=== PATIENT | female | born 1980 | race Caucasian/White ===

== ENCOUNTER 2017-10-26 15:25 | Emergency (ER) | payer OTHER ==
[~2017-10-26] VITALS: Ht 157.5 cm; Wt 93.9 kg
[2017-10-26] MEDS ORDERED: KETOROLAC 60 MG/2 ML IM ONE (16:00)
[2017-10-26] MEDS ORDERED: DIAZEPAM 5 MG TABLET PO ONE (16:00)
[2017-10-26] MEDS ORDERED: PROMETHAZINE 25 MG/ML, 1ML IM ONE (16:00)
[2017-10-26] MEDS ORDERED: PROMETHAZINE 25 MG/ML, 1ML ONE (16:05)
[2017-10-26] MEDS ORDERED: KETOROLAC 30 MG/1 ML ONE (16:05)
[2017-10-26] MEDS ORDERED: DIAZEPAM 5 MG TABLET ONE (16:06)
[2017-10-26 17:34] VITALS: BP 131/71
== END 2017-10-26 17:41 | disposition home or self-care (01) ==
LOC: ED 17:35
DX: R51 Headache (principal); G43.909 Migraine, unspecified, not intractable, without status migrainosus
CPT/HCPCS: 96372; 99284; J1885; J2550

== ENCOUNTER 2018-01-02 15:33 | Observation (INO) | payer OTHER ==
[~2018-01-02] VITALS: Ht 154.9 cm; Wt 93.0 kg
[2018-01-02 16:13] LABS: BASOPHILS # (AUTO) 0.01 x10^3/uL (0-0.1); BASOPHILS % (AUTO) 0 % (0-1); EOSINOPHILS # (AUTO) 0.04 x10^3/uL (0-0.4); EOSINOPHILS % (AUTO) 0 % (1-7); LYMPHOCYTES # (AUTO) 1.96 x10^3/uL (1-3.4); LYMPHOCYTES % (AUTO) 21 % (22-44); MD NO; MEAN CORPUSCULAR HEMOGLOBIN 28.6 pg (27.0-34.8); MEAN CORPUSCULAR HGB CONC 33.9 g/dL (32.4-35.8); MEAN CORPUSCULAR VOLUME 84.3 fL (80-100); MEAN PLATELET VOLUME 7.1 fL (7.4-10.4); MONOCYTES # (AUTO) 0.32 x10^3/uL (0.2-0.8); MONOCYTES % (AUTO) 3 % (2-9); NEUTROPHILS # (AUTO) 7.25 x10^3/uL (1.8-6.8); NEUTROPHILS % (AUTO) 76 % (42-75); PLATELET COUNT 441 x10^3/uL (130-400); RED BLOOD COUNT 4.84 x10^6/uL (3.82-5.3); RED CELL DISTRIBUTION WIDTH 13.5 % (9.6-15.2)
[2018-01-02 16:25] LABS: AMPHETAMINE SCREEN, URINE Negative (Negative); BARBITURATE SCREEN, URINE Negative (Negative); BENZODIAZEPINE SCREEN, URINE Negative (Negative); CANNABINOID SCREEN, URINE Negative (Negative); COCAINE SCREEN, URINE Negative (Negative); METHADONE SCREEN, URINE Negative (Negative); OPIATE SCREEN, URINE Negative (Negative)
[2018-01-02 16:26] LABS: ANION GAP 10 mmol/L (5-15); CALCIUM 8.6 mg/dL (8.5-10.1); CHLORIDE 110 mmol/L (98-107)
[2018-01-02 16:34] LABS: ALANINE AMINOTRANSFERASE 37 U/L (12-78); ALKALINE PHOSPHATASE 116 U/L (45-117); BILIRUBIN,TOTAL 0.2 mg/dL (0.2-1.0); CREATININE 0.74 mg/dL (0.55-1.02); TOTAL PROTEIN 8.6 g/dL (6.4-8.2)
[2018-01-02 16:39] LABS: ACETAMINOPHEN < 2 mcg/mL (10-30); SALICYLATE LEVEL < 1.7 mg/dL (2.8-20.0)
[2018-01-02] MEDS ORDERED: LIDOCAINE 1%-EPI 1:100K, 30ML INFIL ONE (17:30)
[2018-01-02] MEDS ORDERED: LIDOCAINE 2%-EPI 1:100K, 20ML INFIL ONE (18:00)
[2018-01-02] MEDS ORDERED: [UNRECOGNIZED DRUG - REMARK] MC SCH (18:00)
[2018-01-02] MEDS ORDERED: ACETAMINOPHEN 500 MG TABLET ONE (18:32)
[2018-01-02] MEDS ORDERED: BACITRACIN ZINC OINT 500U/GM, 0.9 GM ONE (19:53)
[2018-01-02] MEDS ORDERED: DIPH,PERTUSS(ACELL),TET VAC/PF NC IM-VACC ONE (20:00)
[2018-01-02] MEDS ORDERED: ACETAMINOPHEN 500 MG TABLET PO ONE (20:00)
[2018-01-02] MEDS ORDERED: DIPH,PERTUSS(ACELL),TET VAC/PF 0.5 ML IM-VACC ONE (20:13)
[2018-01-03] MEDS ORDERED: IBUPROFEN 200 MG TABLET ONE (00:43)
[2018-01-03] MEDS ORDERED: IBUPROFEN 200 MG TABLET PO ONE (01:30)
[2018-01-03] MEDS ORDERED: DOCUSATE 100 MG CAPSULE PO PRN (03:00)
[2018-01-03] MEDS ORDERED: LORazepam 1MG TABLET PO PRN (03:00)
[2018-01-03] MEDS ORDERED: LORazepam 2 MG/ML, 1ML IM PRN (03:00)
[2018-01-03] MEDS ORDERED: ONDANSETRON ODT 4 MG PO PRN (03:00)
[2018-01-03] MEDS ORDERED: ACETAMINOPHEN 325 MG TABLET PO PRN (03:00)
[2018-01-03 03:19] LABS: FREE T4 (FREE THYROXINE) 1.02 ng/dL (0.76-1.46); THYROID STIMULATING HORMONE 1.17 mIU/L (0.358-3.740)
[2018-01-03 03:26] VITALS: BP 125/86
[2018-01-03 04:28] LABS: MICROSCOPIC NOT IND
[2018-01-03 04:32] LABS: CULTURE INDICATED? NO
[2018-01-03 07:55] VITALS: BP 117/75
[2018-01-03] MEDS: HYDROcodone/APAP 5/325 TABLET PO PRN ×3 (09:23→20:48)
[2018-01-03 19:27] VITALS: BP 112/71
[2018-01-04 07:44] VITALS: BP 114/66
== END 2018-01-04 11:53 ==
LOC: ED 20:32 → EDIP 20:35 → 3E 01-03 03:07
PROVIDERS: ADMIT Internal Medicine; ATTEND Internal Medicine
DX: S61.512A Laceration without foreign body of left wrist, initial encounter (principal); Z23 Encounter for immunization; X78.1XXA Intentional self-harm by knife, initial encounter; Y93.89 Activity, other specified; Y92.89 Other specified places as the place of occurrence of the external cause; Y99.8 Other external cause status; I10 Essential (primary) hypertension
CPT/HCPCS: 13121; 13122; 36415; 80053; 80307; 80329; 81003; 84439; 84443; 84703; 85025; 90471; 90715; 99285; G0378; 13101; G0480

== ENCOUNTER 2018-01-15 17:36 | Emergency (ER) | payer OTHER ==
[~2018-01-15] VITALS: Ht 157.5 cm; Wt 94.6 kg
[2018-01-15 17:39] VITALS: BP 122/83
== END 2018-01-15 19:25 | disposition home or self-care (01) ==
LOC: ED 19:19
DX: S64.22XA Injury of radial nerve at wrist and hand level of left arm, initial encounter (principal); S51.812D Laceration without foreign body of left forearm, subsequent encounter; X58.XXXA Exposure to other specified factors, initial encounter; Y93.89 Activity, other specified; Y99.8 Other external cause status; Y92.89 Other specified places as the place of occurrence of the external cause
CPT/HCPCS: 29260; 99283

== ENCOUNTER 2020-06-15 23:47 | Emergency (ER) | payer OTHER ==
[~2020-06-15] VITALS: Ht 154.9 cm; Wt 99.9 kg
--- NOTE | 2020-06-16 00:12 | NUR ---
DR. MORENO AT BEDSIDE EVALUATING PT
--- NOTE | 2020-06-16 00:22 | NUR ---
39 Y/O FEMALE PRESENTS TO THE ER FOR AN ALLERGIC REACTION. PT STATES SHE BEGAN TO HAVE LIP SWELLING THAT EXTENDS TO HER THROAT. SHE STATES SHE HAS HAD THIS HAPPEN IN THE PAST BUT IT'S NEVER BEEN THIS BAD. SHE ALSO DOES NOT KNOW THE CAUSE. SHE IS HAVING DIFFICULTY SPEAKING DUE TO THE AMOUNT OF SWELLING TO HER LIPS. THEY ARE PRESSING AGAINST HER NOSTRILS MAKING IT DIFFICULT TO BREATHE FROM HER NOSE.SHE IS CURRENTLY MAINTAINING SECRETIONS, DENIES ANY SHORTNESS OF BREATH. VITALS STABLE. PT REPORTS TAKING 50MG OF BENEDRYL PRIOR TO ARRIVAL WITH NO CHANGE. IV ESTABLISHED. AL MONITORING EQUIPMENT IN PLACE. SINUS TACH ON THE MONITOR. NO ECTOPY NOTED.
[2020-06-16] MEDS ORDERED: EPINEPHRINE 1 MG/ML, 1ML ONE (00:23)
[2020-06-16] MEDS ORDERED: methylPREDNISolone SOD SUCC 125 MG/2 ML ONE (00:23)
[2020-06-16] MEDS ORDERED: ONDANSETRON 2MG/ML, 2ML ONE (00:24)
[2020-06-16] MEDS ORDERED: FAMOTIDINE 20 MG/2 ML ONE (00:24)
[2020-06-16] MEDS ORDERED: FAMOTIDINE 20 MG/2 ML IVPush ONE (00:30)
[2020-06-16] MEDS ORDERED: ONDANSETRON 2MG/ML, 2ML IVPush ONE (00:30)
[2020-06-16] MEDS ORDERED: DIPHENHYDRAMINE 50 MG/ML, 1ML IVPush ONE (00:30)
[2020-06-16] MEDS ORDERED: SODIUM CHLORIDE FLUSH 10ML SYR IVF ONE (00:30)
[2020-06-16] MEDS ORDERED: methylPREDNISolone SOD SUCC 125 MG/2 ML IVPush ONE (00:30)
[2020-06-16] MEDS ORDERED: SODIUM CHLORIDE 0.9% 1,000ML IVBOLUS ONE (00:30)
[2020-06-16] MEDS ORDERED: EPINEPHRINE 1 MG/ML, 1ML SQ ONE (00:30)
--- NOTE | 2020-06-16 01:22 | NUR ---
SWELLING TO LIPS STARTING TO SUBSIDE. PT STATES SHE IS BEGINING TO FEEL BETTER
[2020-06-16 02:12] VITALS: BP 117/48
--- NOTE | 2020-06-16 03:12 | NUR ---
Patient/Caregiver given discharge instructions and they have confirmed that they understand the instructions. Patient ambulatory with steady gait.
== END 2020-06-16 03:14 | disposition home or self-care (01) ==
LOC: ED 06-16 01:25
DX: D84.1 Defects in the complement system (principal); R22.0 Localized swelling, mass and lump, head; G43.909 Migraine, unspecified, not intractable, without status migrainosus
CPT/HCPCS: 96372; 96374; 96375; 99284; J0171; J1200; J2405; J2930; J7030